=== PATIENT | female | born 1965 | race Caucasian/White ===

== ENCOUNTER → 2021-01-16 10:16 | Outpatient (BNVA) | payer BC, SELFPAY | PROVIDERS: PCP Family Medicine; Visit Provider Internal Medicine | DX: M25.50 Pain in unspecified joint (principal); L40.9 Psoriasis, unspecified; Z79.899 Other long term (current) drug therapy; Z11.59 Encounter for screening for other viral diseases; Z11.1 Encounter for screening for respiratory tuberculosis; Z79.1 Long term (current) use of non-steroidal anti-inflammatories (NSAID) | CPT/HCPCS: 36415; 99204 ==

== ENCOUNTER 2021-01-16 12:17 | Outpatient (CLI) | payer BC, SELFPAY ==
--- NOTE | 2021-01-16 12:25 | XR_ITS ---
WS: [id number] Exam: XR sacroiliac jts m 3V [id number] Date/Time of Exam: 01/16/2021 1:06 PM Reason For Exam: L40.9 - Psoriasis, unspecified No fracture or dislocation. The SI joints are open. There is mild DJD of the bilateral SI joints. No bone destruction noted. XR/XR sacroiliac jts m 3V [id number] IMPRESSION: 1. Bilateral SI joint DJD. No other significant finding.
--- NOTE | 2021-01-16 12:25 | XR_ITS ---
WS: [id number] Exam: XR foot RT 2V [id number] Date/Time of Exam: 01/16/2021 12:25 PM Reason For Exam: M25.50 - Pain in unspecified joint Findings: The foot was examined in multiple views and reveals no fractures or displacements of bone. No bony a nomalies are noted. The bony elements are in adequate alignment. The joint spaces are smooth and eq uidistant. XR/XR foot RT 2V [id number] IMPRESSION: Negative right foot.
--- NOTE | 2021-01-16 12:25 | XR_ITS ---
WS: [id number] Exam: XR hand LT 2V [id number] Date/Time of Exam: 01/16/2021 12:25 PM Reason For Exam: M25.50 - Pain in unspecified joint No fracture or dislocation noted. Mild DJD in the IP joints and the MP joints. Moderate DJD at the CM C joint of the thumb. No soft tissue foreign bodies are seen. XR/XR hand LT 2V [id number] IMPRESSION: 1. Degenerative changes as detailed above. No fracture or other significant fin ding.
--- NOTE | 2021-01-16 12:25 | XR_ITS ---
WS: [id number] Exam: XR foot LT 2V [id number] Date/Time of Exam: 01/16/2021 12:25 PM Reason For Exam: M25.50 - Pain in unspecified joint Findings: The foot was examined in multiple views and reveals no fractures or displacements of bone. No bony a nomalies are noted. The bony elements are in adequate alignment. The joint spaces are smooth and eq uidistant. XR/XR foot LT 2V [id number] IMPRESSION: Negative left foot.
--- NOTE | 2021-01-16 12:25 | XR_ITS ---
WS: [id number] Exam: XR lumbar spine 2-3V* [id number] Date/Time of Exam: 01/16/2021 12:25 PM Reason For Exam: M25.50 - Pain in unspecified joint No acute fracture or dislocation. Disc spaces are preserved. Posterior elements are intact. Mild face t DJD at L4-5 and L5-S1. XR/XR lumbar spine 2-3V* [id number] IMPRESSION: 1. No fracture or malalignment. 2. Facet DJD as noted above.
--- NOTE | 2021-01-16 12:25 | XR_ITS ---
WS: [id number] Exam: XR hand RT 2V [id number] Date/Time of Exam: 01/16/2021 12:25 PM Reason For Exam: M25.50 - Pain in unspecified joint No fracture or dislocation. Mild degenerative changes in the IP joints. No soft tissue foreign bodies . XR/XR hand RT 2V [id number] IMPRESSION: 1. No fracture. 2. Mild DJD of the IP joints
== END 2021-01-16 12:18 | disposition home or self-care (01) ==
LOC: RAD 12:22
PROVIDERS: PCP Family Medicine; Visit Provider Internal Medicine
DX: L40.9 Psoriasis, unspecified (principal); M25.50 Pain in unspecified joint
CPT/HCPCS: 72100; 72202; 73120; 73620; 80053; 81003; 82550; 82728; 83540; 83735; 84100; 85025; 86140; 86160; 86162; 86200; 86235; 86255; 86376; 86704; 86803; 87340

== ENCOUNTER → 2021-01-23 12:44 | Outpatient (BNVA) | payer BC, SELFPAY | PROVIDERS: PCP Family Medicine; Visit Provider Internal Medicine | DX: D64.9 Anemia, unspecified (principal); M25.50 Pain in unspecified joint; R53.83 Other fatigue; Z79.899 Other long term (current) drug therapy; L40.9 Psoriasis, unspecified; R76.8 Other specified abnormal immunological findings in serum | CPT/HCPCS: 36415; 86160; 86162; 86235; 86255; 86376; 86480 ==

== ENCOUNTER → 2021-02-20 14:46 | Outpatient (BNVA) | payer BC, SELFPAY | PROVIDERS: PCP Family Medicine; Visit Provider Internal Medicine | DX: M25.50 Pain in unspecified joint (principal); L40.9 Psoriasis, unspecified; Z79.899 Other long term (current) drug therapy; Z79.1 Long term (current) use of non-steroidal anti-inflammatories (NSAID) | CPT/HCPCS: 99214 ==

== ENCOUNTER 2021-07-12 13:01 | Outpatient (CLI) | payer BC, SELFPAY ==
[2021-07-12 13:37] LABS: Basophils # 0.1 10^3/uL (0.0-0.1); Basophils % 0.6 %; Eosinophils # 0.2 10^3/uL (0.0-0.8); Hematocrit 39.6 % (37.0-47.0); Hemoglobin 13.3 g/dL (11.5-15.3); Lymphocytes # 1.6 10^3/uL (0.8-4.8); Lymphocytes % 20.6 %; Mean Corpuscular HGB Conc 33.6 g/dL (30.0-36.0); Mean Corpuscular Hemoglobin 33.3 pg (28.0-34.0); Mean Platelet Volume 10.1 fL (7.4-10.4); Monocytes # 0.6 10^3/uL (0.2-0.9); Monocytes % 7.3 %; Neutrophils # 5.41 10^3/uL (1.8-7.7); Neutrophils % 69.4 %; Nucleated Red Blood Cells % 0 %; Platelet Count 263 10^3/cmm (130-400); Red Cell Distribution Width 13.6 % (12.1-15.1); White Blood Count 7.8 10^3/uL (4.0-10.0)
[2021-07-12 13:39] LABS: Erythrocyte Sedimentation Rate 18 mm/hr (0-15)
[2021-07-12 14:00] LABS: Alanine Aminotransferase 31 U/L (0-33); Albumin Level 4.6 g/dL (3.5-5.2); Alkaline Phosphatase 58 IU/L (35-105); Aspartate Amino Transferase 51 U/L (0-32); Blood Urea Nitrogen 18 mg/dL (6-20); Calcium 8.5 mg/dL (8.5-10.5); Carbon Dioxide 27 mmol/L (22-29); Chloride 100 mmol/L (98-107); Globulin 2.8 g/dL (1.3-4.6); Glomerular Filtration Rate 126.7 mL/min (90-130); Glucose 86 mg/dL (65-115); Osmolality Calculated 285 mOsm/kg (285-295); Sodium 137 mmol/L (136-145); Total Bilirubin 0.4 mg/dL (0.15-1.2); Total Protein 7.4 g/dL (6.6-8.7)
== END 2021-07-12 13:02 | disposition home or self-care (01) ==
PROVIDERS: PCP Family Medicine; Visit Provider Internal Medicine
DX: L40.9 Psoriasis, unspecified (principal); M25.50 Pain in unspecified joint; Z79.899 Other long term (current) drug therapy
CPT/HCPCS: 36415; 80053; 85025; 85651; 86140

== ENCOUNTER → 2022-06-24 11:39 | Outpatient (BNVA) | payer BC, SELFPAY | PROVIDERS: PCP Family Medicine; Visit Provider Registered Nurse | DX: R00.2 Palpitations (principal); R06.02 Shortness of breath; L40.9 Psoriasis, unspecified; Z76.89 Persons encountering health services in other specified circumstances | CPT/HCPCS: 80061; 82306; 82607; 84443; 85025 ==

== ENCOUNTER 2022-06-26 11:43 | Outpatient (CLI) | payer BC, SELFPAY ==
--- NOTE | 2022-06-26 12:04 | XRR_ITS ---
PROCEDURE INFORMATION: Exam: XR Chest Exam date and time: 06/26/2022 12:17 PM Age: 57 years old Clinical indication: Left-sided; Patient HX: Cough for over a month. Pain in left lower quadrant. ; Additional info: R06.02 - shortness of breath TECHNIQUE: Imaging protocol: Radiologic exam of the chest. Views: 2 views. PA and Lateral COMPARISON: No relevant prior studies available. FINDINGS: Lungs: There are normal lung volumes. Left upper lobe posterior small irregular region of airspace opacity is seen. This is suggestive of pneumonia, although underlying pathology cannot be excluded. Recommend follow-up until complete resolution. The right lung is clear. Pleural spaces: No pleural effusions or pneumothorax. Heart/Mediastinum: Normal heart size. There is a mildly tortuous thoracic aorta. Midline trachea. Bones/joints: No acute osseous abnormalities seen. XR/XR chest 2V* [id number] IMPRESSION: Left upper lobe posterior small irregular region of airspace opacity. This is suggestive of pneumonia, although underlying pathology cannot be excluded. Recommend follow-up until complete resolution.
== END 2022-06-26 11:44 | disposition home or self-care (01) ==
PROVIDERS: PCP Registered Nurse; Visit Provider Registered Nurse
DX: R00.2 Palpitations (principal); R06.02 Shortness of breath
CPT/HCPCS: 71046

== ENCOUNTER 2022-07-11 13:40 | Outpatient (CLI) | payer BC, SELFPAY ==
--- NOTE | 2022-07-11 14:00 | CT_ITS ---
WS: [id number] CT chest wo con [id number] HISTORY: R06.02 - Shortness of breath TECHNIQUE: Axial imaging performed through the thorax. Coronal and sagittal reformats are submitted. All CT scans at [facility] use at least one of these dose optimization techniques: automated exposure control; mA and/or kV adjustment per patient size (includes targeted exams where dose is mat ched to clinical indication); or iterative reconstruction. CONTRAST: None DLP: 170.55 mGy.cm COMPARISON: Chest radiograph 06/26/2022 Lungs and central airway: Concerning airspace opacifications in the LEFT upper lobe. Focal area of co nsolidation in the central LEFT upper lobe abuts the fissure. This area of consolidation along the fi ssure measures 12 x 19 mm. There is an additional opacification more anteriorly which on the axial im ages appears spiculated. This consolidation measures 18 x 16 mm. This may be along the fissure. There may be a normal variant. Configuration. There is a minor annular major fissure. Both of these consol idations need to be further evaluated. This is probably part of the same process due to their close c onfiguration. Corresponds to the findings on the recent radiograph. Otherwise lungs are clear. Pleura: Normal. No pleural effusion. Heart and pericardium: Normal size heart with no pericardial effusion. Mediastinum and sheyla: No mediastinum or hilar adenopathy. Vessels: Normal size aortic and pulmonary artery. No coronary artery calcifications. Chest wall and lower neck: No soft tissue masses. Upper abdomen: Normal. Osseous structures: No destructive process. CT/CT chest wo con [id number] IMPRESSION: 1. Irregular, spiculated opacifications in the LEFT upper lobe. Two opacifica tions are probably part of the same process due to their close proximity. Opaci fication in the central lung measures 18 x 16 mm. There is an additional adjace nt opacification measuring 12 x 19 mm. Both of these areas are concerning for r esidual pneumonia or malignancy. Overall compared to the recent chest radiograp h the consolidation of the tears improved. Recommend evaluation by pulmonology to exclude neoplasm. Short-term chest CT follow-up versus PET CT. 2. No adenopathy. 3. Variant configuration of the LEFT pulmonary fissures suspected. There appea rs to be a minor and major fissure in the LEFT lung.
== END 2022-07-11 13:41 | disposition home or self-care (01) ==
LOC: RAD 13:42
PROVIDERS: PCP Registered Nurse; Visit Provider Registered Nurse
DX: R06.02 Shortness of breath (principal); R91.8 Other nonspecific abnormal finding of lung field
CPT/HCPCS: 71250

== ENCOUNTER 2022-08-03 05:33 | Outpatient (CLI) | payer BC, SELFPAY ==
--- NOTE | 2022-08-03 08:30 | PETR_ITS ---
PROCEDURE INFORMATION: Exam: PET/CT Skull Base to Mid-thigh Exam date and time: 08/03/2022 9:25 AM Age: 57 years old Clinical indication: Abnormal findings; 1. Irregular, spiculated opacifications in the left upper lobe. Two opacifications are probably part of the same process due to their close proximity. Opacification in the central lung measures 18 x 16 mm. There is an additional adjacent opacification measuring 12 x 19 mm. Both of these areas are concerning for residual pneumonia or malignancy. Overall compared to the recent chest radiograph the consolidation of the tears improved. Recommend evaluation by pulmonology to exclude neoplasm CT 07/11/22; Additional info: R91.8 - other nonspecific abnormal finding of lung field LABS AND CLINICAL REPORTS: Glucose: 92 mg/dl Treatment strategy for malignancy (PET staging): Initial Staging (PI) TECHNIQUE: Imaging protocol: Following at least four-hour fasting and following the injection of radiopharmaceutical, low dose CT images were obtained. Then, PET images were obtained. Attenuation corrected images were constructed using the CT scan. Fused images of PET and CT were reviewed. The standardized uptake values (SUV) reported below are maximum values within a region of interest, expressed in gm/ml. Exam includes orbital meatal line to mid-thigh. Radiopharmaceutical: 13.41 mCi F-18 FDG (Fluorodeoxyglucose), IV. Time of imaging post radiopharmaceutical administration: 1 hour Injection site: Left antecubital vein COMPARISON: CT chest con [id number] 07/11/2022 2:14 PM FINDINGS: Brain: Visualized brain has normal physiologic uptake. Pharynx: No abnormal uptake. Larynx: No abnormal uptake. Lungs, pleura and trachea: No abnormal uptake. Linear irregular shaped opacity inferiorly in the left upper lobe is not FDG avid with low-grade uptake of 1.5 SUV possibly representing an area of scarring. Heart: Normal physiologic uptake. There is no cardiomegaly. There is no pericardial effusion. No coronary artery calcification is visualized. Mediastinal space: There is diffusely mildly increased uptake of 3.7 SUV in the esophagus with no abnormal wall thickening or dilatation. Liver: No abnormal uptake. 1.4 cm simple cyst in the left lobe. Gallbladder and bile ducts: No abnormal uptake. No calcified gallstones. Pancreas: No abnormal uptake. Spleen: No abnormal uptake. No splenomegaly. Adrenal glands: No abnormal uptake. No lung nodules. Kidneys and ureters: Normal physiologic uptake. No hydronephrosis. Stomach and bowel: Long segment of slightly increased uptake in the cecum and ascending colon with no corresponding CT abnormality is likely benign. Intraperitoneal and retroperitoneal spaces: No abnormal uptake. No ascites. Bladder: Normal physiologic uptake. Reproductive: No abnormal uptake. 3.5 cm cyst in the right ovary. The uterus and the left ovary are unremarkable. Vasculature: No abnormal uptake. Lymph nodes: No abnormal uptake. No lymphadenopathy in the head, neck, chest, abdomen, pelvis, and extremities. Bones/joints: No abnormal uptake in the visualized axial and appendicular skeleton. Soft tissues: No abnormal uptake in the visualized head, neck, chest, abdomen, pelvis, and extremities. [facility] INITIAL [id number] IMPRESSION: No abnormal uptake to suggest malignancy. There is low activity of 1.5 SUV within linear irregular shaped opacity in the left upper lobe possibly representing scarring. Slightly increased activity in the esophagus with no morphologic abnormality for clinical correlation with esophagitis. Incidental finding of 3.5 cm right ovarian cyst with no abnormal uptake, likely benign finding. If no prior exams are available to confirm long-term stability ultrasound follow-up in 6-12 months is recommended. References: Eliot et al. Management of Incidental Adnexal Findings on CT and MRI: A White Paper of the ACR Incidental Findings Committee, J Am Yue Radiol. 2020 Apr;17(2):248-254.
== END 2022-08-03 05:34 | disposition home or self-care (01) ==
LOC: RAD 08-05 05:33
PROVIDERS: PCP Registered Nurse; Visit Provider Registered Nurse
DX: R91.8 Other nonspecific abnormal finding of lung field (principal)
CPT/HCPCS: 78815; A9552

== ENCOUNTER 2023-05-02 12:59 | Outpatient (CLI) | payer BC, SELFPAY ==
--- NOTE | 2023-05-02 13:15 | US_ITS ---
WS: [id number] US pelv w/transvag [id number] HISTORY: N83.202 - Unspecified ovarian cyst, left side COMPARISON: PET/CT 08/03/2022 Uterus: 6.2 cm x 2.0 cm x 3.5 cm. Normal size anteverted uterus. No fibroid or mass. Endometrium: 0.3 cm. Normal. There is a tiny amount of fluid adjacent to the fundal portion of the en dometrium. No mass or increased vascularity. Right ovary: 3.8 cm x 3.2 cm x 3.8 cm. There is a large simple cyst with through transmission in the RIGHT adnexa. Small amount of adjacent ovarian tissue. Essentially is a cyst is a size of the ovary d ue to its very large size. There is no solid component. Left ovary: Not identified. No adnexal mass. No free fluid. IMPRESSION: O RADS 2; RIGHT ovarian cyst. Simple cyst with no solid component. Almost certainly benign.
== END 2023-05-02 13:00 | disposition home or self-care (01) ==
LOC: RAD 13:00
PROVIDERS: PCP Registered Nurse; Visit Provider Registered Nurse
DX: N83.201 Unspecified ovarian cyst, right side (principal)
CPT/HCPCS: 76830; 76856

== ENCOUNTER 2023-05-09 09:54 | Outpatient (CLI) | payer BC, SELFPAY ==
--- NOTE | 2023-05-09 09:59 | MM_ITS ---
WS: [id number] BILATERAL 3D TOMOSYNTHESIS DIGITAL SCREENING MAMMOGRAPHY WITH CAD CLINICAL INFORMATION: Z12.39 - Encounter for other screening for malignant neop... HISTORY: Screening mammogram. No current complaints. COMPARISON: 2018 TECHNIQUE: Bilateral CC and MLO views. FINDINGS: The breasts are composed of heterogeneous fibroglandular density tissue, which can limit the detectio n of small underlying mass lesions. No suspicious mass, asymmetry, calcifications, or architectural d istortion. No evidence of malignancy. A few tiny incidental punctate calcifications. IMPRESSION: MM/[place] [id number] BI-RADS: 2-Benign FOLLOW UP: 1 Year Follow-up Recommend return to annual screening mammography.
== END 2023-05-09 09:55 | disposition home or self-care (01) ==
LOC: RAD 09:55
PROVIDERS: PCP Registered Nurse; Visit Provider Registered Nurse
DX: Z12.31 Encounter for screening mammogram for malignant neoplasm of breast (principal); R92.323 Mammographic fibroglandular density, bilateral breasts; R92.333 Mammographic heterogeneous density, bilateral breasts
CPT/HCPCS: 77063; 77067

== ENCOUNTER → 2023-10-16 11:55 | Outpatient (BNVA) | payer BC, SELFPAY | PROVIDERS: PCP Registered Nurse; Visit Provider Registered Nurse | DX: R00.2 Palpitations (principal); F33.0 Major depressive disorder, recurrent, mild; L40.50 Arthropathic psoriasis, unspecified | CPT/HCPCS: 80053; 84443 ==

== ENCOUNTER 2024-11-15 14:32 | Outpatient (CLI) | payer BC, SELFPAY ==
--- NOTE | 2024-11-15 | MM_ITS ---
WS: [id number] BILATERAL 3D TOMOSYNTHESIS DIGITAL SCREENING MAMMOGRAPHY WITH CAD CLINICAL INFORMATION: ANNUAL SCREENING HISTORY: Screening mammogram. No current complaints. COMPARISON: 2023 TECHNIQUE: Bilateral CC and MLO views. FINDINGS: The breasts are composed of heterogeneous fibroglandular density tissue, which can limit the detection of small underlying mass lesions. No suspicious mass, asymmetry, calcifications, or architectural distortion. No evidence of malignancy. MM/MM scr tomosynthesis [id number] IMPRESSION: DENSITY: The breasts are heterogeneously dense, which may obscure small masses. BI-RADS: 1 - Negative FOLLOW UP: 1 Year Follow-up Recommend return to annual screening mammography.
== END 2024-11-15 14:33 | disposition home or self-care (01) ==
LOC: RAD 14:34
PROVIDERS: PCP Registered Nurse; Visit Provider Registered Nurse
DX: Z12.31 Encounter for screening mammogram for malignant neoplasm of breast (principal); R92.333 Mammographic heterogeneous density, bilateral breasts; R92.323 Mammographic fibroglandular density, bilateral breasts
CPT/HCPCS: 77063; 77067

== ENCOUNTER → 2024-12-13 12:00 | Outpatient (BNVA) | payer BC, SELFPAY | PROVIDERS: PCP Registered Nurse; Visit Provider Nurse Practitioner Women's Health | DX: Z01.419 Encounter for gynecological examination (general) (routine) without abnormal findings (principal) | CPT/HCPCS: 80053; 82306; 82465; 83036; 83718; 83721; 84443; 85025 ==

== ENCOUNTER 2024-12-27 13:38 | Outpatient (CLI) | payer BC, SELFPAY ==
--- NOTE | 2024-12-27 13:45 | USR_ITS ---
PROCEDURE INFORMATION: Exam: US Pelvis, Complete, Non-Obstetric Exam date and time: 12/27/2024 1:52 PM Age: 59 years old Clinical indication: Condition or disease; Ovarian conditions; Type of cyst not specified; Additional info: N83.209 - unspecified ovarian cyst, unspecified side TECHNIQUE: Imaging protocol: Transabdominal pelvic nonobstetric ultrasound. Complete exam. Real time ultrasound with image documentation. COMPARISON: US pelv w/transvag [id number] 05/02/2023 1:16 PM FINDINGS: Uterus: Uterus measures 5.9 x 2.3 x 3.4 cm. Myometrial echogenicity is within normal limits. Endometrium is at the upper limit of normal in thickness for a postmenopausal patient, measuring 5 mm. Right ovary/adnexa: The right ovary measures 4.2 x 2.8 x 3.2 cm. The right ovary contains a unilocular 4 cm cyst. Vascular flow is difficult to demonstrate in the right ovary. Left ovary/adnexa: Left ovary is seen transabdominally and measures 1.6 x 1.3 x 0.8 cm. Vascular flow is present in the left ovary. Intraperitoneal space: No pelvic free fluid. Urinary bladder: Normal. US/US pelv w/transvag [id number] IMPRESSION: Unchanged unilocular right ovarian cyst, almost certainly benign. Recommend follow-up ultrasound in 1 year or at 2 years from the initial examination (whichever is later). (Reference: Matilde, 2019) References: Matilde Heck et al. Simple Adnexal Cysts: SRU Consensus Conference Update on Follow-up and Reporting. Radiology. 2019;293(2):359-371.
== END 2024-12-27 13:39 | disposition home or self-care (01) ==
LOC: RAD 13:39
PROVIDERS: PCP Registered Nurse; Visit Provider Nurse Practitioner Women's Health
DX: N83.201 Unspecified ovarian cyst, right side (principal)
CPT/HCPCS: 76830; 76856